=== PATIENT | female | born 1995 | race Caucasian/White ===

== ENCOUNTER 2020-07-01 07:20 | Emergency (ER) | payer OTHER ==
[~2020-07-01] VITALS: Ht 167.6 cm; Wt 63.5 kg
[2020-07-01] MEDS ORDERED: CEPHALEXIN500 M1 PO (09:00)
== END 2020-07-01 09:17 | disposition home or self-care (01) ==
LOC: ED 07:20
DX: S61.012A Laceration without foreign body of left thumb without damage to nail, initial encounter (principal); W26.8XXA Contact with other sharp object(s), not elsewhere classified, initial encounter; Y93.89 Activity, other specified; Y92.89 Other specified places as the place of occurrence of the external cause; Y99.8 Other external cause status

== ENCOUNTER 2020-07-10 15:07 | Emergency (ER) | payer OTHER ==
[~2020-07-10] VITALS: Ht 167.6 cm; Wt 63.5 kg
[~2020-07-10 15:07] MED LIST: CEPHALEXIN500 M1 PO
== END 2020-07-10 16:03 | disposition home or self-care (01) ==
LOC: ED 15:07
DX: S61.412D Laceration without foreign body of left hand, subsequent encounter (principal); Z48.02 Encounter for removal of sutures; Z79.899 Other long term (current) drug therapy; X58.XXXD Exposure to other specified factors, subsequent encounter

== ENCOUNTER 2020-07-15 15:27 | Emergency (ER) | payer OTHER ==
[~2020-07-15] VITALS: Ht 167.6 cm; Wt 63.5 kg
== END 2020-07-15 15:43 | disposition home or self-care (01) ==
LOC: ED 15:27
DX: S61.412D Laceration without foreign body of left hand, subsequent encounter (principal); Z48.02 Encounter for removal of sutures; X58.XXXD Exposure to other specified factors, subsequent encounter